=== PATIENT | male | born 1985 | race Two or more races ===

== ENCOUNTER 2018-05-11 08:09 | Emergency (ER) | payer SELFPAY ==
[~2018-05-11] VITALS: Ht 170.2 cm; Wt 79.8 kg
[2018-05-11 08:12] VITALS: BP 138/79
--- NOTE | 2018-05-11 10:35 | NUR ---
CALLED FOR ROOM, NO ANSWER.
--- NOTE | 2018-05-11 10:45 | NUR ---
NO ANSWER IN LOBBY OR RESTROOM AT THIS TIME.
--- NOTE | 2018-05-11 10:54 | NUR ---
RADIOLOGY DELAY-CALLED FOR PATIENT 2X WITH NO ANSWER IN LOBBY
--- NOTE | 2018-05-11 10:58 | NUR ---
NO ANSWER IN LOBBY OR RESTROOM.
[2018-05-11] MEDS ORDERED: FAMOTIDINE 20 MG TABLET PO ONE (11:00)
[2018-05-11] MEDS ORDERED: ONDANSETRON ODT 4 MG PO ONE (11:00)
== END 2018-05-11 11:00 | disposition left against medical advice (07) ==
LOC: EDBD 08:09 → ED 10:54
DX: M25.551 Pain in right hip (principal); Z53.21 Procedure and treatment not carried out due to patient leaving prior to being seen by health care provider